=== PATIENT | female | born 1990 | race Caucasian/White ===

== ENCOUNTER 2020-02-25 17:52 | Emergency (ER) | payer OTHER ==
[~2020-02-25] VITALS: Ht 157 cm; Wt 80.4 kg
--- NOTE | 2020-02-25 18:08 | ED Dyspnea ---
General Stated Complaint: BILAT LEG SWELLING/R LEG PAIN/SOB Source of Information: Patient Exam Limitations: No Limitations History of Present Illness Date Seen by Provider: Feb 25, 2020 Time Seen by Provider: 18:06 Initial Comments To ER with bilateral leg swelling for 3 weeks. The right leg has been painful for about 2 weeks. She has been short of breath for about 2 weeks. She just moved here from [facility]. She had a Covid swab done at the onset of this and it was negative. Dyspnea is with exertion. No cough no fevers and the diarrhea has resolved. He has no personal history of anxiety and depression. Takes no medications. Timing/Duration: Increasing Severity: Moderate Associated Symptoms: Pain (Right leg) Allergies and Home Medications Allergies Coded Allergies: No Allergy Information Available (Unverified , 02/25/20) Home Medications Hydrochlorothiazide 12.5 Mg Tablet, 12.5 MG PO DAILY Prescribed by: HAROLDO WYNNE on 02/25/201921 Patient Home Medication List Home Medication List Reviewed: Yes Review of Systems Review of Systems Constitutional: see HPI EENTM: see HPI Respiratory: see HPI, dyspnea on exertion, short of breath Cardiovascular: no symptoms reported Genitourinary: no symptoms reported Musculoskeletal: no symptoms reported Skin: no symptoms reported Psychiatric/Neurological: No Symptoms Reported Endocrine: No Symptoms Reported Past Zbecroh-Glokwu-Goxpwo Hx Patient Social History Recent Foreign Travel: No Contact w/Someone Who Travel: No Physical Exam Vital Signs Vital Signs - First Documented 02/25/20 17:59 Temp 37.1 Pulse 80 Resp 18 B/P (MAP) 141/84 (103) Pulse Ox 98 O2 Delivery Room Air Capillary Refill : Height, Weight, BMI Height: '" Weight: lbs. oz. kg; BMI Method: General Appearance: No Apparent Distress, WD/WN, Other (does appear short of breath but lungs are clear with oxygen saturation 96-99 all all. She is afebrile.) Respiratory: Normal Breath Sounds, No Accessory Muscle Use, No Respiratory Distress Cardiovascular: Regular Rate, Rhythm, Normal Peripheral Pulses Gastrointestinal: Normal Bowel Sounds, Non Tender, Soft Extremity: Normal Capillary Refill, Normal Inspection, Pedal Edema (2+BLE) Neurologic/Psychiatric: Alert, Oriented x3 Skin: Normal Color, Warm/Dry Progress/Results/Core Measures Results/Orders Lab Results Laboratory Tests Test 02/25/20 18:02 02/25/20 18:14 Range/Units White Blood Count 12.6 H 4.3-11.0 10^3/uL Red Blood Count 4.21 L 4.35-5.85 10^6/uL Hemoglobin 12.3 11.5-16.0 G/DL Hematocrit 37 35-52 % Mean Corpuscular Volume 88 80-99 FL Mean Corpuscular Hemoglobin 29 25-34 PG Mean Corpuscular Hemoglobin Concent 33 32-36 G/DL Red Cell Distribution Width 13.0 10.0-14.5 % Platelet Count 250 130-400 10^3/uL Mean Platelet Volume 10.8 H 7.4-10.4 FL Neutrophils (%) (Auto) 66 42-75 % Lymphocytes (%) (Auto) 23 12-44 % Monocytes (%) (Auto) 10 0-12 % Eosinophils (%) (Auto) 1 0-10 % Basophils (%) (Auto) 0 0-10 % Neutrophils # (Auto) 8.2 H 1.8-7.8 X 10^3 Lymphocytes # (Auto) 2.9 1.0-4.0 X 10^3 Monocytes # (Auto) 1.2 H 0.0-1.0 X 10^3 Eosinophils # (Auto) 0.2 0.0-0.3 10^3/uL Basophils # (Auto) 0.0 0.0-0.1 10^3/uL D-Dimer 0.80 H 0.00-0.49 UG/ML Sodium Level 141 135-145 MMOL/L Potassium Level 3.8 3.6-5.0 MMOL/L Chloride Level 107 98-107 MMOL/L Carbon Dioxide Level 23 21-32 MMOL/L Anion Gap 11 5-14 MMOL/L Blood Urea Nitrogen 11 7-18 MG/DL Creatinine 0.70 0.60-1.30 MG/DL Estimat Glomerular Filtration Rate > 60 BUN/Creatinine Ratio 16 Glucose Level 86 70-105 MG/DL Calcium Level 9.0 8.5-10.1 MG/DL Corrected Calcium 8.9 8.5-10.1 MG/DL Total Bilirubin 0.1 0.1-1.0 MG/DL Aspartate Amino Transf (AST/SGOT) 25 5-34 U/L Alanine Aminotransferase (ALT/SGPT) 34 0-55 U/L Alkaline Phosphatase 70 40-136 U/L C-Reactive Protein High Sensitivity 0.37 0.00-0.50 MG/DL B-Type Natriuretic Peptide 17.9 <100.0 PG/ML Total Protein 7.4 6.4-8.2 GM/DL Albumin 4.1 3.2-4.5 GM/DL Thyroid Stimulating Hormone (TSH) 1.11 0.35-4.94 UIU/ML Free Thyroxine 0.74 0.70-1.48 NG/DL Serum Test, Qualitative NEGATIVE NEGATIVE Urine Color YELLOW Urine Clarity CLEAR Urine pH 7.0 5-9 Urine Specific [place] 1.015 L 1.016-1.022 Urine Protein NEGATIVE NEGATIVE Urine Glucose (UA) NEGATIVE NEGATIVE Urine Ketones NEGATIVE NEGATIVE Urine Nitrite NEGATIVE NEGATIVE Urine Bilirubin NEGATIVE NEGATIVE Urine Urobilinogen 0.2 < = 1.0 MG/DL Urine Leukocyte Esterase NEGATIVE NEGATIVE Urine RBC (Auto) NEGATIVE NEGATIVE Urine RBC NONE /HPF Urine WBC NONE /HPF Urine Crystals PRESENT H /LPF Urine Amorphous Sediment MOD BECKY PHOSPHATE H /LPF Urine Bacteria TRACE /HPF Urine Casts NONE /LPF Urine Mucus NEGATIVE /LPF Urine Culture Indicated NO My Orders Orders - HAROLDO WYNNE [employer]SEMBL[employer] Hcg,Qualitative Serum (02/25/20 18:05) Cbc With Automated Diff (02/25/20 18:05) Comprehensive Metabolic Panel (02/25/20 18:05) Hs C Reactive Protein (02/25/20 18:05) Ua Culture If Indicated (02/25/20 18:05) Ed Iv/Invasive Line Start (02/25/20 18:05) Fibrin Degradation Products (02/25/20 18:05) Chest Pa/Lat (2 View) (02/25/20 18:05) Thyroid Stimulating Hormone (02/25/20 18:05) Free T4 (Free Thyroxine) (02/25/20 18:05) BNP (02/25/20 18:05) Ct Angio Chest W (02/25/20 19:01) Iohexol Injection (Omnipaque 350 Mg/Ml 1 (02/25/20 19:15) Received Contrast (Hold Metformin- Contr (02/25/20 19:15) Ns (Ivpb) (Sodium Chloride 0.9% Ivpb Bag (02/25/20 19:15) Furosemide Injection (Lasix Injection) (02/25/20 20:00) Medications Given in ED Current Medications Medications Dose Ordered Sig/Michelle Route Start Time Stop Time Status Last Admin Dose Admin Iohexol 75 ml ONCE ONCE IV 02/25/20 19:15 02/25/20 19:16 DC 02/25/20 19:29 75 ML Sodium Chloride 100 ml ONCE ONCE IV 02/25/20 19:15 02/25/20 19:16 DC 02/25/20 19:29 100 ML Vital Signs/I&O 02/25/20 17:59 Temp 37.1 Pulse 80 Resp 18 B/P (MAP) 141/84 (103) Pulse Ox 98 O2 Delivery Room Air Departure Communication (Admissions) Family Conversation [id number] is a little high but just minimal. I'll write an order for an outpatient right lower extremity venous Doppler. I'll put her on hydrochlorothiazide given the pedal edema and slight hypertension. I'll have her follow-up with [facility] calling tomorrow to make an appointment to be seen. NAME: BIRAN GUILLERMO [facility] REC#: [id number] PT STATUS: REG ER : 1990 PHYSICIAN: HAROLDO WYNNE APRN ADMIT DATE: 02/25/20/ER Draft Date of Exam:02/25/20 CT ANGIO CHEST W PROCEDURE: CT angiography of the chest with contrast. TECHNIQUE: Multiple contiguous axial images were obtained through the chest after uneventful bolus administration of intravenous contrast. 3D reconstructed CTA MIP acquisitions were also performed. Auto Exposure Controls were utilized during the CT exam to meet ALARA standards for radiation dose reduction. INDICATION: Chest pain, dyspnea and chest tightness. There is good opacification of the pulmonary arteries without intraluminal filling defect identified. Thoracic aorta is also unremarkable. Lungs are clear. There is no significant pleural or pericardial fluid. There is no evidence of pathologic adenopathy in the chest. Below the diaphragm, no abnormality is appreciated. IMPRESSION: No CTA evidence of pulmonary embolism or other acute abnormality within the thorax. Dictated on workstation # [id number] Dict: 02/25/201929 Trans: 02/25/201934 [facility] [id number] Interpreted by: MARY ANN FAIRBANKS MD Electronically signed by: Impression Primary Impression: Dyspnea Additional Impression: Pedal edema Disposition: HOME, SELF-CARE Condition: Stable Departure-Patient Inst. Decision time for Depature: 19:19 Referrals: KRISTOPHER CASTILLO MD NO,LOCAL PHYSICIAN (PCP) Primary Care Physician Patient Instructions: Shortness of Breath (Dyspnea), Swelling Add. Discharge Instructions: 1. Call Dr. Castillo at [facility] tomorrow and request an appointment with either her or one of her colleagues, whoever can see the soonest. Return to ER for any concerns. Scripts Hydrochlorothiazide (Hydrochlorothiazide) 12.5 Mg Tablet 12.5 MG PO DAILY, #14 TAB Prov: HAROLDO WYNNE APRN 02/25/20 Copy Copies To 1: EVIE BROWN DO; KRISTOPHER CASTILLO MD, PETER J APRN Feb 25, 2020 18:08
[2020-02-25 18:12] LABS: BASOPHILS % (AUTO) 0 % (0-10); EOSINOPHILS # (AUTO) 0.2 10^3/uL (0.0-0.3); EOSINOPHILS % (AUTO) 1 % (0-10); HEMATOCRIT 37 % (35-52); HEMOGLOBIN 12.3 G/DL (11.5-16.0); LYMPHOCYTES # (AUTO) 2.9 X 10^3 (1.0-4.0); LYMPHOCYTES % (AUTO) 23 % (12-44); MEAN CORPUSCULAR HEMOGLOBIN 29 PG (25-34); MEAN CORPUSCULAR HGB CONC 33 G/DL (32-36); MEAN CORPUSCULAR VOLUME 88 FL (80-99); MEAN PLATELET VOLUME 10.8 FL (7.4-10.4); MONOCYTES # (AUTO) 1.2 X 10^3 (0.0-1.0); MONOCYTES % (AUTO) 10 % (0-12); NEUTROPHILS # (AUTO) 8.2 X 10^3 (1.8-7.8); NEUTROPHILS % (AUTO) 66 % (42-75); PLATELET COUNT 250 10^3/uL (130-400); WHITE BLOOD COUNT 12.6 10^3/uL (4.3-11.0)
[2020-02-25 18:25] LABS: ALBUMIN 4.1 GM/DL (3.2-4.5); CHLORIDE 107 MMOL/L (98-107); POTASSIUM 3.8 MMOL/L (3.6-5.0); SODIUM 141 MMOL/L (135-145)
[2020-02-25 18:28] LABS: GLUCOSE 86 MG/DL (70-105); TOTAL PROTEIN 7.4 GM/DL (6.4-8.2)
[2020-02-25 18:29] LABS: BILIRUBIN,TOTAL 0.1 MG/DL (0.1-1.0); CARBON DIOXIDE 23 MMOL/L (21-32)
[2020-02-25 18:31] LABS: ALKALINE PHOSPHATASE 70 U/L (40-136); GFR ESTIMATED > 60
[2020-02-25 18:32] LABS: BUN/CREATININE RATIO 16
[2020-02-25 18:33] LABS: BILIRUBIN,URINE NEGATIVE (NEGATIVE); CLARITY,URINE CLEAR; COLOR,URINE YELLOW; GLUCOSE, URINE (UA) NEGATIVE (NEGATIVE); KETONES,URINE NEGATIVE (NEGATIVE); LEUKOCYTE ESTERASE ,URINE NEGATIVE (NEGATIVE); NITRITE,URINE NEGATIVE (NEGATIVE); PROTEIN,URINE NEGATIVE (NEGATIVE)
[2020-02-25 18:34] LABS: ALANINE AMINOTRANSFERASE 34 U/L (0-55)
[2020-02-25 18:54] LABS: BACTERIA,URINE TRACE /HPF
[2020-02-25 18:55] LABS: AMORPHOUS SEDIMENT,UR MOD AMOR PHOSPHATE /LPF
[2020-02-25 18:55] LABS: FREE T4 (FREE THYROXINE) 0.74 NG/DL (0.70-1.48)
--- NOTE | 2020-02-25 19:09 | Diagnostic Imaging Report ---
INDICATION: 29-year-old female with bilateral lower extremity swelling for 3 weeks, intermittent shortness of breath. COMPARISONS: None FINDINGS: Single view of the chest shows the cardiac contour to be within normal limits. There is some prominence of the central vascularity. Overlying breast shadows are seen. No significant consolidations present. There is no effusion or pneumothorax. Soft tissues and bony thorax are normal. IMPRESSION: There is suggestion of some prominence of central pulmonary vascularity suggesting element of mild failure. No significant consolidations are seen. There is no effusion or pneumothorax. Dictated by: Dictated on workstation # [id number]
[2020-02-25] MEDS ORDERED: HOLD METFORMIN - RECEIVED CONTRAST 20 ML VIAL IV SCH (19:15)
[2020-02-25] MEDS ORDERED: IOHEXOL 350 MG/ML 100 ML (OMNIPAQUE 350) VIAL IV ONE (19:15)
[2020-02-25] MEDS ORDERED: NS 100 ML (IVPB) BAG IV ONE (19:15)
[2020-02-25] MEDS ORDERED: HYDR12.56 PO (19:22)
--- NOTE | 2020-02-25 19:37 | Diagnostic Imaging Report ---
PROCEDURE: CT angiography of the chest with contrast. TECHNIQUE: Multiple contiguous axial images were obtained through the chest after uneventful bolus administration of intravenous contrast. 3D reconstructed CTA MIP acquisitions were also performed. Auto Exposure Controls were utilized during the CT exam to meet ALARA standards for radiation dose reduction. INDICATION: Chest pain, dyspnea and chest tightness. There is good opacification of the pulmonary arteries without intraluminal filling defect identified. Thoracic aorta is also unremarkable. Lungs are clear. There is no significant pleural or pericardial fluid. There is no evidence of pathologic adenopathy in the chest. Below the diaphragm, no abnormality is appreciated. IMPRESSION: No CTA evidence of pulmonary embolism or other acute abnormality within the thorax. Dictated by: Dictated on workstation # [id number]
[2020-02-25] MEDS ORDERED: FUROSEMIDE 40 MG/4 ML INJ (LASIX) IVP ONE (20:00)
[2020-02-25 20:01] VITALS: BP 129/83
--- OUTSIDE RECORDS SUMMARY | 2020-02-25 20:40 | XMS REPORT | Continuity of Care Document ---
[facility] Address [address] [place] [address] Care Team Providers Care Ios Programmer Name Role Phone Renetta De León Attphys Referring Physician, None Refphys Unavailable Primary Care Prov, None PCP Unavailable Allergies, Adverse Reactions, Alerts No known allergies. Medications Active Medications Medication Dose Units Route Sig Start Date Status Bupropion Hcl 75 MG PO daily May 04, 2018 Active Problem List No problem information available. Procedures Procedure Date Status US Breast Limited-RT May 04, 2018 completed US Breast Limited-LT May 04, 2018 completed Relevant Diagnostic Tests and/or Laboratory Data No known relevant diagnostic tests, laboratory data, and/or discharge summary. Chief Complaint and Reason for Visit Encounter Admit Date Chief Complaint Reason for Visit Departed Clinical May 04, 2018 1:57pm Left breast nodule Hospital Discharge Instructions No known hospital discharge instructions. Hospital Discharge Medications Medication Dose Units Route Sig Qty Days Order Date Status In structions Bupropion Hcl 75 MG PO daily May 04, 2018 A ctive Encounters Encounter Facility Location Admit/Visit Date Discharge/Departure Date Attending Provider Departed Physician/Provider Office Visit [facility] Breast [facility] May 04, 2018 2:26pm May 04, 2018 11:59pm David De León Departed Clinical [facility] Ultrasound Breast Care Luis Antonio May 04, 2018 1:57pm May 04, 2018 1:58pm Renetta De León Registered Inpatient [facility] Apr 2:10pm Smita Castellano Functional Status No known functional status. Immunizations No known immunizations. Payers Payer Name Policy Type Covered Green Party Covered Green Party Id Relationship Sub scriber Subscriber Id [employer] Other [id number] Self / Same As Patient [id number] Self Pay Other Plan of Care No Known Plan of Care Information Social History No known social history. Vital Signs Vital Reading Result Reference Range Collection Date/ Time Height 5 ft 2 in May 04, 2018 2:54pm Weight 140 lb May 04, 2018 2:54pm Temperature 98.5 F 97.6 F-99.6 F May 04, 2018 2:54pm Pulse 64 BPM 60-90 May 04, 2018 2:54pm Respiration 12 RPM 12-24 May 04, 2018 2:54pm Pulse Oximetry n/a Blood Pressure Systolic 122 100-180 May 04, 2018 2:54pm Blood Pressure Diastolic 68 60-90 May 04, 2018 2:54pm Body Mass Index 25.6 May 04, 2018 2:54pm
--- OUTSIDE RECORDS SUMMARY | 2020-02-25 20:41 | XMS REPORT | Continuity of Care Document ---
Author [facility] Address [address] [place] [address] Care Team Providers Care Telephone Operator Name Role Phone Renetta De León Attphys Primary Care Prov, None PCP Unavailable Allergies, Adverse Reactions, Alerts No known allergies. Medications Active Medications Medication Dose Units Route Sig Start Date Status Bupropion Hcl 75 MG PO daily May 04, 2018 Active Problem List No problem information available. Procedures Procedure Date Status US Breast Limited-RT May 04, 2018 completed US Breast Limited-LT May 04, 2018 completed Reason for Referral Referral information is unavailable. Relevant Diagnostic Tests and/or Laboratory Data No known relevant diagnostic tests, laboratory data, and/or discharge summary. Chief Complaint and Reason for Visit Encounter Admit Date Chief Complaint Reason for Visit Departed Physician/Provider Office Visit May 04, 2018 2:2 6pm NEW PATIENT/BREAST PAIN Hospital Discharge Instructions No known hospital discharge instructions. Hospital Discharge Medications Medication Dose Units Route Sig Qty Days Order Date Status In structions Bupropion Hcl 75 MG PO daily May 04, 2018 A ctive Encounters Encounter Facility Location Admit/Visit Date Discharge/Departure Date Attending Provider Departed Physician/Provider Office Visit [facility] May 04, 2018 2:26pm May 04, 2018 11:59pm David De León Registered Clinical [facility] Ultrasound Breast Ca re Luis Antonio May 04, 2018 1:57pm Renetta De León Registered Inpatient [facility] Apr 2:10pm Smita Castellano Functional Status No known functional status. Immunizations No known immunizations. Payers Payer Name Policy Type Covered Republican Covered Republican Id Relationship Sub scriber Subscriber Id [employer] Other [id number] Self / Same As Patient [id number] Self Pay Other Plan of Care No [...]
--- OUTSIDE RECORDS SUMMARY | 2020-02-25 20:41 | XMS REPORT | Continuity of Care Document ---
Author Organization Unknown Address Unknown Phone Unavailable Allergies Active Description Code Type Severity Reaction Onset Reported/Identified Relationship to Patient Clinical Status Yes NO KNOWN ALLERGIES DRUG N/A N/A Yes No Known Drug Allergies [id number] Drug Allergy Unknown N/A 05/04/2018 Yes No Known Allergies No Known Allerg MED N/A No Known Allergies 07/18/2018 Medications Medication Packaging Start Date St op Date Route Dosage Sig Sertraline HCl 50 MG Oral Tablet 07/18/2018 09/17/2018 ORAL 0.500 diazePAM 2 MG Oral Tablet 09/12/2018 10/13/2018 ORAL Problems Date Dx Coded Attending Type Code Diagnosis Diagnosed By 03/29/2018 W [id number] atypical chest pain 04/05/2018 Kayode José [id number] pain of breast 04/17/2018 FLORIAN HATHAWAY S M436 Torticollis 04/17/2018 FLORIAN HATHAWAY P R079 Chest pain, unspecified 05/04/2018 Genet, Renetta R F N64.9 Disorder of breast, unspecified 05/04/2018 Genet, Renetta R F R92.8 Other abnormal and inconclusive findings on diagnostic imaging of breast 05/04/2018 Genet, Renetta R Other N64 .9 N64.9 - Disorder of breast, unspecified 05/04/2018 Genet, Renetta R Other R92 .8 R92.8 - Other abnormal and inconclusive findings on diagnostic imaging of breast 06/06/2018 F F33.1 Ananya r depressive disorder, recurrent, moderate Birkey, Dixon 06/06/2018 F F43.9 Reac tion to severe stress, unspecified Birkey, Dixon 08/07/2018 F F43.9 Reac tion to severe stress, unspecified Birkey, Dixon 09/19/2018 Ирина Braun V1 N63.0 Unspecified lump in unspecified breast 09/19/2018 Ирина Braun V1 N64.4 Mastodynia 09/19/2018 Ирина Braun V1 N63.0 Unspecified lump in unspecified breast 09/19/2018 Ирина Braun V1 N64.4 Mastodynia 09/19/2018 Ирина Braun V1 N63.0 Unspecified lump in unspecified breast 09/19/2018 Ирина Braun V1 N64.4 Mastodynia Procedures Code Description [place] [id number] 05/04/2018 Results Test Result Range CBC WO diff BldCo - 04/17/18 15:18 HEMATOCRIT 36.2 % 34.1 - 44.9 HEMOGLOBIN 12.2 G/DL 11.2 - 15.7 RBC COUNT 4.16 10^6/UL 3.93 - 5.20 WBC COUNT 10.6 10^3/UL 3.9 - 10.0 CBC + LAB MCV 87.0 FL 79.4 - 94.8 MCH 29.3 PG 25.6 - 32.2 MCHC 33.7 G/DL 32.2 - 35.5 RDW 11.9 % 11.5 - 14.5 PLT 233 10^3/UL 150 - 450 MPV 11.2 FL 9.2 - 11.6 LY 29.2 % 19.3 - 51.7 MO 9.2 % 4.7 - 12.5 GR 60.2 % 34.1 - 71.1 EO 0.8 % 0.7 - 5.8 BA 0.4 % 0.1 - 3.0 LY# 3.1 10^3/UL 1.2 - 3.7 MO# 1.0 10^3/UL 0.2 - 0.9 GR# 6.4 10^3/UL 1.6 - 6.1 EO# 0.1 10^3/UL BA# <0.03 10^3/UL MANUAL DIFF. NOT INDICATED MORPHOLOGY SCAN NOT INDICATED IMGR 0.20 % 0.00 - 6.00 IMGR# <0.03 10^3/UL Deprecated D Dimer [facility] - 04/17/18 1 5:18 D-DIMER QUANT. 0.29 MG/L 0.19 - 0.50 PT Pnl PPP - 04/17/18 15:18 PROTIME 11.2 SECONDS 9.7 - 11.6 INR 1.05 0.80 - 1.20 aPTT Time PPP - 04/17/18 15:18 aPTT 32.2 SECONDS 25.0 - 39.0 Comp Metab 2000 Pnl SerPl - 04/17/18 15: 18 ALANINE AMINOTRANSFERASE 15 IU/L 0 - 3 5 ALBUMIN BLOOD 4.7 G/DL 3.5 - 5.0 AST 23 IU/L 14 - 36 CHLORIDE 105 MMOL/L 98 - 107 CO2 TOTAL 24 MMOL/L 22 - 30 CREATININE 0.6 MG/DL 0.5 - 1.0 DA GLUCOSE 99 MG/DL 73 - 113 POTASSIUM 3.5 MMOL/L 3.5 - 5.1 SODIUM 139 MMOL/L 137 - 145 COMPREHENSIVE METABOLIC PANEL LAB UREA NITROGEN 11 MG/DL 7 - 17 ANION GAP 14 6 - 16 OSMO, CALC. 287 MOS/KG 283 - 300 TOTAL PROTEIN 8.3 G/DL 6.0 - 8.3 GLOBULIN 3.6 G/DL 1.9 - 3.5 A/G RATIO 1.31 1.10 - 3.00 ALK PHOS 66 IU/L 38 - 126 CALCIUM 9.5 MG/DL 8.4 - 10.2 B/C RATIO 18 10 - 20 AGE 27 YRS eGFR 118 mL/min 60 - 140 TOTAL BILI R 0.3 MG/DL 0.2 - 1.3 Cardiac biomarkers - 04/17/18 15:18 CK 42 IU/L 30 - 135 TROPONIN I <0.01 NG/ML 0.00 - 0.04 Magnesium SerPl-mCnc - 04/17/18 15:18 MAGNESIUM 1.4 MEQ/L 1.4 - 2.0 status Imp Reported - 04/17/18 15:18 HCG, QUAL. NEGATIVE Urinalysis Pnl Ur Auto - 04/17/18 16:30 DA GLUCOSE Negative Normal: Negative Color No Color Normal: Straw-Suzie Clarity Clear Normal: Clear Bilirubin Negative Normal: Negative Ketones Negative Normal: Negative Sp [place] <=1.005 Normal: 1.005-1.02 5 Blood Negative Normal: Negative pH 7.0 Normal: 5.0 - 8.0 Protein Negative Normal: Negative Urobilinogen Normal Normal: 0.2 - 1. 0 Nitrite Negative Normal: Negative Leukocytes Negative Normal: Negative Microscopic Not Indicated URINALYSIS W/RFLX TO CULTURE + LAB Quantitative HCG - 04/19/18 10:09 Quantitative HCG <1.20 mIU/mL <=5.00 ESTRADIOL - 04/19/18 10:09 ESTRADIOL Sent to reference lab report to follow NRG FSH - 04/19/18 10:09 FSH Sent to reference lab report to follow NRG LH - 04/19/18 10:09 LH Sent to reference lab report to follow NRG PROLACTIN - 04/19/18 10:09 PROLACTIN Sent to reference lab report to follow NRG Free T3 - 04/19/18 10:09 Free T3 2.33 pg/ml 1.71-3.71 TSH - 04/19/18 10:09 TSH 1.22 mIU/mL 0.35-4.94 Free T4 - 04/19/18 10:09 Free T4 0.95 ng/dL 0.70-1.48 CPK - 04/19/18 10:32 CPK 33 U/L 29-168 CKMB - 04/19/18 10:32 CKMB 0.3 ng/mL 0.0-10.4 MYOGLOBIN - 04/19/18 10:32 Myoglobin 25.7 ng/ml 0.0-106.0 TROPONIN I - 04/19/18 10:32 TROPONIN -I 0.00 ng/mL 0.00-0.03 CHICO SCREEN - 04/26/18 11:10 CHICO SCREEN Sent to reference lab report to follow NRG RHEUMATOID FACTOR - 04/26/18 11:10 RHEUMATOID FACTOR Sent to reference lab report to follow NRG Sed Rate (ESR) - 04/26/18 11:10 Sed Rate (ESR) 20 mm/hr 0-20 C-Reactive Protein (CRP) - 04/26/18 11:1 0 C REACTIVE PROTEIN 0.2 mg/dl 0.0-0.5 Uric Acid - 04/26/18 11:10 Uric Acid 3.0 mg/dL 2.6-6.0 Complete blood count (CBC) with automate d white blood cell (WBC) differential - 02/25/20 18:02 Blood leukocytes automated count (number/volume) 12.6 10*3/uL 4.3-11.0 Blood erythrocytes automated count (number/volume) 4.21 10*6/uL 4.35-5.85 Venous blood hemoglobin measurement (mass/volume) 12.3 g/dL 11.5-16.0 Blood hematocrit (volume fraction) 37 % 35-52 Automated erythrocyte mean corpuscular volume 88 [ foz_us] 80-99 Automated erythrocyte mean corpuscular h emoglobin (mass per erythrocyte) 29 pg 25-34 Automated erythrocyte mean corpuscular h emoglobin concentration measurement (mass/volume) 33 g/dL 32-36 Automated erythrocyte distribution width ratio 13. 0 % 10.0- 14.5 Automated blood platelet count (count/volume) 250 10*3/uL 130-400 Automated blood platelet mean volume measurement 10.8 [foz_us] 7.4-10.4 Automated blood neutrophils/100 leukocytes 66 % 42-75 Automated blood lymphocytes/100 leukocytes 23 % 12-44 Blood monocytes/100 leukocytes 10 % 0-12 Automated blood eosinophils/100 leukocytes 1 % 0-10 Automated blood basophils/100 leukocytes 0 % 0-10 Blood neutrophils automated count (number/volume) 8.2 10*3 1.8-7.8 Blood lymphocytes automated count (number/volume) 2.9 10*3 1.0-4.0 Blood monocytes automated count (number/volume) 1. 2 10*3 0.0-1.0 Automated eosinophil count 0.2 10*3/uL 0 .0-0.3 Automated blood basophil count (count/volume) 0.0 10*3/uL 0.0-0.1 Encounters ACCT No. Visit Date/Time Discharge Status Pt. Type Provider Facility Loc./Unit Complaint [id number] 06/06/2018 11:29:00 06/06/2018 23:5 9:59 [facility] Outpatient [id number] 04/17/2018 15:15:00 04/17/2018 23:59: 59 [facility] Emergency IAFLORIAN SARMIENTO [facility] 014 [id number] 04/17/2018 15:15:00 Document Registration [id number] 09/19/2018 14:13:06 09/19/2018 23: 59:00 DIS Outpatient Ирина Braun [facility] [id number] 02/25/2020 17:54:[address] Emergency HAROLDO WYNNE APRN [facility] ER BILAT LEG SWELLING/R LEG MARCELLA N/SOB [id number] 05/04/2018 14:26:00 018 23:59:00 DIS Outpatient Renetta De León [facility] HMG.BREAST NEW PATIENT/BREAST PAIN [id number] 05/04/2018 13:57:00 13:58:00 DIS Outpatient GenetRenetta [facility] IMG.US.BCC Left breast nodule [id number] 04/19/2018 14:10:00 018 23:59:59 CLS Outpatient Arnav ROQUE [facility] ARNOLDO Chest pain [id number] 09/04/2018 07:31:00 23:59:00 [facility] 14 [id number] 04/26/2018 10:48:00 018 23:59:00 [facility] [id number] 04/25/2018 09:23:00 018 23:59:00 DIS Outpatient [facility] 14 [id number] 04/25/2018 17:48:00 018 18:52:00 DIS Emergency [facility] 4 [id number] 04/21/2018 11:33:00 018 23:59:00 DIS Outpatient [facility] 14 [id number] 04/19/2018 09:43:00 018 23:59:00 DIS Outpatient [facility] 14 [id number] 04/05/2018 08:51:00 018 09:30:00 DIS Outpatient [facility] 52 [id number] 03/29/2018 10:31:00 018 15:55:00 DIS Outpatient [facility] 51 [id number] 03/29/2018 07:32:00 018 15:55:00 DIS Emergency [facility] 4 [id number] 04/26/2018 12:19:00 Document Registration [id number] 04/19/2018 11:46:00 Document Registration [id number] 04/17/2018 21:40:00 Document Registration
== END 2020-02-25 20:01 | disposition home or self-care (01) ==
LOC: ER 17:54
DX: R06.09 Other forms of dyspnea (principal); R60.9 Edema, unspecified; Z20.828 Contact with and (suspected) exposure to other viral communicable diseases
CPT/HCPCS: 36415; 71046; 71275; 80053; 81000; 83880; 84439; 84443; 84703; 85025; 85379; 86141

== ENCOUNTER → 2020-02-26 | Outpatient (CLI) | payer OTHER ==
[~2020-02-26] MED LIST: HYDR12.56 PO
--- NOTE | 2020-02-26 14:08 | Diagnostic Imaging Report ---
PROCEDURE: US right lower extremity venous. TECHNIQUE: Multiple real-time grayscale images were obtained over the right lower extremity in various projections. Additional spectral analysis and color Doppler duplex images were also obtained. INDICATION: Leg pain There are no prior studies for comparison. There is generally good blood flow and compressibility in the common femoral, superficial femoral, popliteal and posterior tibial veins. However the peroneal vein does appear to be thrombosed. IMPRESSION: 1. There is thrombosis of the peroneal vein. The remainder of the deep venous system is unremarkable for a deep venous thrombosis. 2. These results were called to Dr. Gates by our sonologist. Dictated by: Dictated on workstation # [id number]
== END ==
LOC: RAD 12:57
PROVIDERS: ATTEND Nurse Practitioner Family
DX: I82.451 Acute embolism and thrombosis of right peroneal vein (principal)

== ENCOUNTER 2020-04-10 19:40 | Emergency (ER) | payer OTHER ==
[~2020-04-10] VITALS: Ht 160 cm; Wt 80.2 kg
[2020-04-10] MEDS ORDERED: LORazepam INJ 2 MG/ML (ATIVAN) VIAL ONE (19:49)
[2020-04-10] MEDS ORDERED: KETOROLAC 30 MG/ML VIAL ONE (19:58)
[2020-04-10] MEDS ORDERED: LORazepam INJ 2 MG/ML (ATIVAN) VIAL IVP ONE (20:00)
[2020-04-10] MEDS ORDERED: KETOROLAC 15 MG/ML VIAL IVP ONE (20:15)
--- NOTE | 2020-04-10 20:15 | ED Respiratory ---
General Chief Complaint: Respiratory Problems Stated Complaint: SOA/LIGHT HEADEDNESS/NECK PAIN/COUGH Source: patient Exam Limitations: no limitations History of Present Illness Date Seen by Provider: Apr 10, 2020 Time Seen by Provider: 20:10 Initial Comments To ER with c/o headache, shortness of breath. No fevers. Also has neck tend erness and chest soreness. No fevers. Complains of a lot of anxiety, she is out of her Xanax 1 month. She was just started on Abilify yesterday by [facility]. She states she is very anxious because she just found out about an eating disorder. She assures me she doesn't have coronavirus because she hasn't left the house though she did just go to [place] to visit family and her children go to public schools. She has a history of DVT and is concerned that she has a pulmonary embolism. She is on Eliquis 5 mg twice a day but has missed a few doses here and there. Timing/Duration: constant Severity: moderate Associated Symptoms: cough, shortness of breath Allergies and Home Medications Allergies Coded Allergies: No Known Drug Allergies (Unverified , 04/10/20) Home Medications Hydrochlorothiazide 12.5 Mg Tablet, 12.5 MG PO DAILY Prescribed by: HAROLDO WYNNE on 02/25/201921 Patient Home Medication List Home Medication List Reviewed: Yes Review of Systems Review of Systems Constitutional: see HPI EENTM: see HPI Respiratory: see HPI, dyspnea on exertion, short of breath Cardiovascular: no symptoms reported Genitourinary: no symptoms reported Musculoskeletal: no symptoms reported Skin: no symptoms reported Psychiatric/Neurological: No Symptoms Reported Hematologic/Lymphatic: No Symptoms Reported Immunological/Allergic: no symptoms reported Past Rhupcze-Cxepyc-Ctnnqk Hx Patient Social History 2nd Hand Smoke Exposure: No Recent Foreign Travel: No Contact w/Someone Who Travel: No Recent Hopitalizations: No Immunizations Up To Date PED Vaccines UTD: Yes Seasonal Allergies Seasonal Allergies: No Past Medical History Surgeries: Yes Section Respiratory: No Cardiac: No 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 oz. kg; 32.00 BMI Method: General Appearance: WD/WN, no apparent distress, other (extremely anxious hyperventilating sobbing. As she coughs into my face and hyperventilating she denies a cough, still asserting that coronavirus is outside the realm of possibilities. She apologizes for her behavior stating "I get hostile when I get anxious") HEENT: PERRL/EOMI, normal ENT inspection Neck: non-tender, full range of motion Respiratory: normal breath sounds, no respiratory distress, no accessory muscle use Cardiovascular: regular rate, rhythm, no murmur, other (heart rate 105 reduced down to 85 when calm. Oxygen saturation 99% on room air.) Neurologic/Psychiatric: alert, normal mood/affect, oriented x 3 Skin: normal color, warm/dry Progress/Results/Core Measures Suspected Sepsis SIRS Temperature: Pulse: Respiratory Rate: Laboratory Tests 04/10/20 20:00: White Blood Count 14.9H Blood Pressure / Mean: Laboratory Tests 04/10/20 20:00: Creatinine 0.76, Platelet Count 312, Total Bilirubin 0.3 Results/Orders Lab Results Laboratory Tests Test 04/10/20 20:00 04/10/20 20:30 Range/Units White Blood Count 14.9 H 4.3-11.0 10^3/uL Red Blood Count 4.41 4.35-5.85 10^6/uL Hemoglobin 13.0 11.5-16.0 G/DL Hematocrit 39 35-52 % Mean Corpuscular Volume 87 80-99 FL Mean Corpuscular Hemoglobin 30 25-34 PG Mean Corpuscular Hemoglobin Concent 34 32-36 G/DL Red Cell Distribution Width 12.4 10.0-14.5 % Platelet Count 312 130-400 10^3/uL Mean Platelet Volume 11.0 H 7.4-10.4 FL Neutrophils (%) (Auto) 57 42-75 % Lymphocytes (%) (Auto) 32 12-44 % Monocytes (%) (Auto) 10 0-12 % Eosinophils (%) (Auto) 1 0-10 % Basophils (%) (Auto) 0 0-10 % Neutrophils # (Auto) 8.5 H 1.8-7.8 X 10^3 Lymphocytes # (Auto) 4.8 H 1.0-4.0 X 10^3 Monocytes # (Auto) 1.5 H 0.0-1.0 X 10^3 Eosinophils # (Auto) 0.1 0.0-0.3 10^3/uL Basophils # (Auto) 0.0 0.0-0.1 10^3/uL Neutrophils % (Manual) 64 % Lymphocytes % (Manual) 30 % Monocytes % (Manual) 6 % Eosinophils % (Manual) 0 % Basophils % (Manual) 0 % Band Neutrophils 0 % Toxic Granulation 1+ D-Dimer 0.34 0.00-0.49 UG/ML Sodium Level 139 135-145 MMOL/L Potassium Level 3.9 3.6-5.0 MMOL/L Chloride Level 104 98-107 MMOL/L Carbon Dioxide Level 22 21-32 MMOL/L Anion Gap 13 5-14 MMOL/L Blood Urea Nitrogen 10 7-18 MG/DL Creatinine 0.76 0.60-1.30 MG/DL Estimat Glomerular Filtration Rate > 60 BUN/Creatinine Ratio 13 Glucose Level 96 70-105 MG/DL Calcium Level 9.4 8.5-10.1 MG/DL Corrected Calcium 9.0 8.5-10.1 MG/DL Total Bilirubin 0.3 0.1-1.0 MG/DL Aspartate Amino Transf (AST/SGOT) 34 5-34 U/L Alanine Aminotransferase (ALT/SGPT) 39 0-55 U/L Alkaline Phosphatase 68 40-136 U/L Troponin I < 0.028 <0.028 NG/ML C-Reactive Protein High Sensitivity 0.41 0.00-0.50 MG/DL Total Protein 8.2 6.4-8.2 GM/DL Albumin 4.5 3.2-4.5 GM/DL Serum Test, Qualitative NEGATIVE NEGATIVE My Orders Orders - HAROLDO WYNNE APRN Lorazepam Injection (Ativan Injection) (04/10/20 19:49) Lorazepam Injection (Ativan Injection) (04/10/20 20:00) Ketorolac Injection (Toradol Injection) (04/10/20 19:58) Ketorolac Injection (Toradol Injection) (04/10/20 20:15) Cbc With Automated Diff (04/10/20 20:15) Hcg,Qualitative Serum (04/10/20 20:15) Comprehensive Metabolic Panel (04/10/20 20:15) Fibrin Degradation Products (04/10/20 20:15) Chest 1 View, Ap/Pa Only (04/10/20 20:15) Ekg Tracing (04/10/20 20:15) Troponin I (04/10/20 20:15) Hs C Reactive Protein (04/10/20 20:15) Manual Differential (04/10/20 20:00) Coronavirus Sars-Cov-2 So 2018 (04/10/20 20:39) Ua Culture If Indicated (04/10/20 20:57) Medications Given in ED Current Medications Medications Dose Ordered Sig/Michelle Route Start Time Stop Time Status Last Admin Dose Admin Ketorolac Tromethamine 30 mg STK-MED ONCE .ROUTE 04/10/20 19:58 04/10/20 20:03 DC 04/10/20 20:08 15 MG Lorazepam 1 mg ONCE ONCE IVP 04/10/20 20:00 04/10/20 20:01 DC 04/10/20 19:58 1 MG Vital Signs/I&O 04/10/20 19:49 Temp 36.0 Pulse 108 Resp 24 B/P (MAP) 129/84 (99) O2 Delivery Room Air Capillary Refill : Departure Impression Primary Impression: Anxiety Additional Impressions: Dyspnea Qualified Codes: R06.00 - Dyspnea, unspecified DVT (deep venous thrombosis) Qualified Codes: I82.409 - Acute embolism and thrombosis of unspecified deep veins of unspecified lower extremity Disposition: 01 HOME, SELF-CARE Condition: Improved Departure-Patient Inst. Decision time for Depature: 21:05 Referrals: NO,LOCAL PHYSICIAN (PCP/Family) Primary Care Physician Patient Instructions: Anxiety, Adult (DC), Cough, Adult (DC) Add. Discharge Instructions: 1. Your coronavirus result will be back within 24-48 hours. If it's positive [facility] will be in contact with you to guide you further. In the meantime it would be a good idea to quarantine away from family and friends as much as possible. Tylenol and ibuprofen for any body aches . Follow-up with your mental health provider to discuss treatment options for your anxiety. All discharge instructions reviewed with patient and/or family. Voiced understanding. Scripts Hydroxyzine HCl (Hydroxyzine HCl) 25 Mg Tablet 25 MG PO Q4H PRN for ANXIETY, #14 TAB Prov: HAROLDO WYNNE APRN 04/10/20 HAROLDO WYNNE APRN Apr 10, 2020 20:15
[2020-04-10 20:32] LABS: BASOPHILS % (AUTO) 0 % (0-10); EOSINOPHILS # (AUTO) 0.1 10^3/uL (0.0-0.3); EOSINOPHILS % (AUTO) 1 % (0-10); HEMATOCRIT 39 % (35-52); LYMPHOCYTES # (AUTO) 4.8 X 10^3 (1.0-4.0); LYMPHOCYTES % (AUTO) 32 % (12-44); MEAN CORPUSCULAR HEMOGLOBIN 30 PG (25-34); MEAN CORPUSCULAR HGB CONC 34 G/DL (32-36); MEAN CORPUSCULAR VOLUME 87 FL (80-99); MONOCYTES # (AUTO) 1.5 X 10^3 (0.0-1.0); MONOCYTES % (AUTO) 10 % (0-12); NEUTROPHILS # (AUTO) 8.5 X 10^3 (1.8-7.8); NEUTROPHILS % (AUTO) 57 % (42-75); PLATELET COUNT 312 10^3/uL (130-400); WHITE BLOOD COUNT 14.9 10^3/uL (4.3-11.0)
[2020-04-10 20:35] LABS: ALBUMIN 4.5 GM/DL (3.2-4.5); CHLORIDE 104 MMOL/L (98-107); POTASSIUM 3.9 MMOL/L (3.6-5.0); SODIUM 139 MMOL/L (135-145)
[2020-04-10 20:36] LABS: CALCIUM 9.4 MG/DL (8.5-10.1)
[2020-04-10 20:38] LABS: GLUCOSE 96 MG/DL (70-105); TOTAL PROTEIN 8.2 GM/DL (6.4-8.2)
[2020-04-10 20:39] LABS: BILIRUBIN,TOTAL 0.3 MG/DL (0.1-1.0); CARBON DIOXIDE 22 MMOL/L (21-32)
[2020-04-10 20:41] LABS: ALKALINE PHOSPHATASE 68 U/L (40-136); CREATININE SERUM 0.76 MG/DL (0.60-1.30); GFR ESTIMATED > 60
[2020-04-10 20:42] LABS: BUN/CREATININE RATIO 13
[2020-04-10 20:44] LABS: ALANINE AMINOTRANSFERASE 39 U/L (0-55)
--- NOTE | 2020-04-10 20:44 | Diagnostic Imaging Report ---
EXAM: Chest 1 view, AP/PA only. INDICATION: Shortness of air. Lightheadedness. Cough. COMPARISON: CTA chest 02/25/2020. FINDINGS: Normal heart size and central pulmonary vascularity. No focal pulmonary opacity, pleural effusion or pneumothorax. No acute osseous finding. IMPRESSION: No acute cardiopulmonary finding. Dictated by: Dictated on workstation # [id number]
[2020-04-10 20:56] LABS: BAND NEUTROPHILS 0 %; BASOPHILS % (MANUAL) 0 %; EOSINOPHILS % (MANUAL) 0 %; LYMPHOCYTES % (MANUAL) 30 %; MONOCYTES % (MANUAL) 6 %; NEUTROPHILS % (MANUAL) 64 %; TOXIC GRANULATION/VACUOLAZATIO 1+
[2020-04-10] MEDS ORDERED: HYDR-700 PO (21:07)
[2020-04-10 21:16] LABS: BILIRUBIN,URINE NEGATIVE (NEGATIVE); CLARITY,URINE CLEAR; COLOR,URINE YELLOW; GLUCOSE, URINE (UA) NEGATIVE (NEGATIVE); KETONES,URINE NEGATIVE (NEGATIVE); LEUKOCYTE ESTERASE ,URINE NEGATIVE (NEGATIVE); NITRITE,URINE NEGATIVE (NEGATIVE); PH,URINE 6.5 (5-9); PROTEIN,URINE NEGATIVE (NEGATIVE)
[2020-04-10 21:23] LABS: BACTERIA,URINE TRACE /HPF; SQUAMOUS EPITHELIAL CELL,UR RARE /HPF
[2020-04-10 21:29] VITALS: BP 120/71
--- NOTE | 2020-04-12 16:04 | NUR ---
Pt called for COVID results.
== END 2020-04-10 21:35 | disposition home or self-care (01) ==
LOC: EDUNIT# 19:40 → ER 19:42
DX: F41.9 Anxiety disorder, unspecified (principal); R06.00 Dyspnea, unspecified; I82.409 Acute embolism and thrombosis of unspecified deep veins of unspecified lower extremity; Z20.828 Contact with and (suspected) exposure to other viral communicable diseases; Z79.01 Long term (current) use of anticoagulants
CPT/HCPCS: 71045; 80053; 81000; 84484; 84703; 85007; 85027; 85379; 86141; 93005; 99284; U0002; 36415; 87635

== ENCOUNTER 2020-05-15 15:56 | Emergency (ER) | payer OTHER ==
[~2020-05-15] VITALS: Ht 157 cm; Wt 79.0 kg
[~2020-05-15 15:56] MED LIST changes: +HYDR-700 PO
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
[2020-05-15] MEDS ORDERED: HYDROcodone/APAP 5 MG/325 MG (LORTAB) TAB PO ONE (17:00)
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
[2020-05-15] MEDS ORDERED: METH-313 PO (17:13)
[2020-05-15] MEDS ORDERED: oxyCODONE/APAP 5/325MG (PERCOCET 5) TABLET PO ONE (17:15)
[2020-05-15 17:22] VITALS: BP 126/89
== END 2020-05-15 17:22 ==
LOC: EDUNIT# 15:56 → ER 15:59
DX: R51.9 Headache, unspecified (principal); R40.2410 Glasgow coma scale score 13-15, unspecified time; F41.9 Anxiety disorder, unspecified; Z20.828 Contact with and (suspected) exposure to other viral communicable diseases
CPT/HCPCS: 70450; 72125

== ENCOUNTER 2020-07-28 11:58 | Emergency (ER) | payer OTHER ==
[~2020-07-28] VITALS: Ht 157 cm; Wt 79.0 kg
[~2020-07-28 11:58] MED LIST changes: +METH-313 PO
--- NOTE | 2020-07-28 14:03 | NUR ---
TO ROOM NO NEW C/O FORM TRIAGE.
[2020-07-28 15:13] LABS: BASOPHILS % (AUTO) 0 % (0-10); EOSINOPHILS # (AUTO) 0.1 10^3/uL (0.0-0.3); EOSINOPHILS % (AUTO) 1 % (0-10); HEMATOCRIT 41 % (35-52); HEMOGLOBIN 13.6 g/dL (11.5-16.0); LYMPHOCYTES # (AUTO) 2.4 10^3/uL (1.0-4.0); LYMPHOCYTES % (AUTO) 26 % (12-44); MEAN CORPUSCULAR HEMOGLOBIN 29 pg (25-34); MEAN CORPUSCULAR HGB CONC 33 g/dL (32-36); MEAN CORPUSCULAR VOLUME 89 fL (80-99); MEAN PLATELET VOLUME 10.1 fL (9.0-12.2); MONOCYTES # (AUTO) 0.8 10^3/uL (0.0-1.0); MONOCYTES % (AUTO) 9 % (0-12); NEUTROPHILS # (AUTO) 5.8 10^3/uL (1.8-7.8); NEUTROPHILS % (AUTO) 63 % (42-75); PLATELET COUNT 303 10^3/uL (130-400); WHITE BLOOD COUNT 9.2 10^3/uL (4.3-11.0)
--- NOTE | 2020-07-28 15:25 | Diagnostic Imaging Report ---
PROCEDURE: US Venous Lower Ext Anibal. TECHNIQUE: Multiple real-time grayscale images were obtained over the lower extremities in various projections, bilaterally. Additional duplex Doppler and color Doppler images were also obtained. INDICATION: Bilateral lower extremity swelling EXAMINATION: Grayscale and color Doppler evaluation of the deep veins of the left lower extremity were performed with waveform analysis. FINDINGS: Continuous venous flow is present. No intraluminal filling defect is identified. There is normal compressibility and response to augmentation. No abnormal perivascular fluid collection is identified. IMPRESSION: No ultrasound evidence of left lower extremity deep venous thrombosis. Dictated by: Dictated on workstation # [id number]
[2020-07-28 15:31] LABS: ALANINE AMINOTRANSFERASE 55 U/L (0-55); ALBUMIN 4.6 GM/DL (3.2-4.5); ALKALINE PHOSPHATASE 74 U/L (40-136); BILIRUBIN,TOTAL 0.3 MG/DL (0.1-1.0); BUN/CREATININE RATIO 12; CALCIUM 9.6 MG/DL (8.5-10.1); CARBON DIOXIDE 32 MMOL/L (21-32); CHLORIDE 105 MMOL/L (98-107); CREATININE SERUM 0.75 MG/DL (0.60-1.30); GFR ESTIMATED > 60; GLUCOSE 90 MG/DL (70-105); POTASSIUM 3.8 MMOL/L (3.6-5.0); SODIUM 141 MMOL/L (135-145); TOTAL PROTEIN 8.7 GM/DL (6.4-8.2)
[2020-07-28 15:32] LABS: ERYTHROCYTE SEDIMENTATION RATE 8 MM/HR (0-20)
--- NOTE | 2020-07-28 17:06 | ED Lower Extremity ---
General Chief Complaint: Lower Extremity Stated Complaint: R CALF PAIN/BILAT LEG SWELLING Nursing Triage Note: Patient reports bilateral swelling in lower extremities. reports calling PCP and being told to come to ER for ultrasound. 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 States her legs started swelling again over the past few days. She does take Eliquis twice daily as directed. Swelling is improved when legs are elevated and worsened when dependent. Denies fevers, chills, cough, shortness of breath, nausea, vomiting, diarrhea, abdominal pain. Allergies and Home Medications Allergies Coded Allergies: No Known Drug Allergies (Unverified , 04/10/20) Home Medications Hydrochlorothiazide 12.5 Mg Tablet, 12.5 MG PO DAILY Prescribed by: HAROLDO WYNNE on 02/25/20 192 Hydroxyzine HCl 25 Mg Tablet, 25 MG PO Q4H PRN for ANXIETY Prescribed by: HAROLDO WYNNE on 04/10/207 Methocarbamol 750 Mg Tablet, 750 MG PO Q4H PRN for PAIN-MODERATE (5-7) Prescribed by: HAROLDO WYNNE on 05/15/20 1713 Patient Home Medication List Home Medication List Reviewed: Yes Review of Systems Constitutional: no symptoms reported EENTM: no symptoms reported Respiratory: no symptoms reported Cardiovascular: edema Gastrointestinal: no symptoms reported Genitourinary: no symptoms reported Musculoskeletal: no symptoms reported Skin: no symptoms reported Psychiatric/Neurological: No Symptoms Reported Past Nmequcb-Ntyogy-Uwfhsi Hx Patient Social History Alcohol Use: Denies Use Recreational Drug Use: No 2nd Hand Smoke Exposure: No Recent Foreign Travel: No Contact w/Someone Who Travel: No Recent Infectious Disease Expo: No Recent Hopitalizations: No Immunizations Up To Date PED Vaccines UTD: Yes Seasonal Allergies Seasonal Allergies: No Past Medical History Surgeries: Yes Section Respiratory: Yes Pulmonary Embolism Cardiac: Yes High Cholesterol Neurological: No PRODUCT DEMONSTRATOR History: IUD Genitourinary: No Gastrointestinal: No Musculoskeletal: No Endocrine: No HEENT: No Cancer: No Psychosocial: Yes Anxiety, Depression Integumentary: No Physical Exam Vital Signs Vital Signs - First Documented 07/28/20 13:50 Temp 37.0 Pulse 100 Resp 18 B/P (MAP) 136/86 (103) Pulse Ox 97 O2 Delivery Room Air Capillary Refill : Less Than 3 Seconds Height, Weight, BMI Height: '" Weight: lbs. oz. kg; 32.00 BMI Method: General Appearance: WD/WN, no apparent distress HEENT: PERRL/EOMI, normal ENT inspection, TMs normal, pharynx normal Neck: non-tender, full range of motion, supple Cardiovascular: regular rate, rhythm; No no gallop; no murmur; No gallop/S3 Respiratory: lungs clear, normal breath sounds, no respiratory distress Gastrointestinal: normal bowel sounds, non tender, soft Hips: bilateral hip non-tender, bilateral hip normal inspection, bilateral hip normal range of motion Legs: bilateral leg non-tender, bilateral leg normal inspection, bilateral leg normal range of motion, bilateral leg swelling Knees: bilateral knee non-tender, bilateral knee normal inspection, bilateral knee normal range of motion, bilateral knee no evidence of injury Ankles: bilateral ankle swelling (bilateral calves ) Feet: bilateral foot swelling (1+ pitting edema ) Neurologic/Psychiatric: no motor/sensory deficits, alert, normal mood/affect, oriented x 3 Skin: normal color, warm/dry Progress/Results/Core Measures Results/Orders Lab Results Laboratory Tests Test 07/28/20 15:05 Range/Units White Blood Count 9.2 4.3-11.0 10^3/uL Red Blood Count 4.64 3.80-5.11 10^6/uL Hemoglobin 13.6 11.5-16.0 g/dL Hematocrit 41 35-52 % Mean Corpuscular Volume 89 80-99 fL Mean Corpuscular Hemoglobin 29 25-34 pg Mean Corpuscular Hemoglobin Concent 33 32-36 g/dL Red Cell Distribution Width 12.5 10.0-14.5 % Platelet Count 303 130-400 10^3/uL Mean Platelet Volume 10.1 9.0-12.2 fL Immature Granulocyte % (Auto) 1 % Neutrophils (%) (Auto) 63 42-75 % Lymphocytes (%) (Auto) 26 12-44 % Monocytes (%) (Auto) 9 0-12 % Eosinophils (%) (Auto) 1 0-10 % Basophils (%) (Auto) 0 0-10 % Neutrophils # (Auto) 5.8 1.8-7.8 10^3/uL Lymphocytes # (Auto) 2.4 1.0-4.0 10^3/uL Monocytes # (Auto) 0.8 0.0-1.0 10^3/uL Eosinophils # (Auto) 0.1 0.0-0.3 10^3/uL Basophils # (Auto) 0.0 0.0-0.1 10^3/uL Immature Granulocyte # (Auto) 0.1 0.0-0.1 10^3/uL Erythrocyte Sedimentation Rate 8 0-20 MM/HR D-Dimer 0.28 0.00-0.49 UG/ML Sodium Level 141 135-145 MMOL/L Potassium Level 3.8 3.6-5.0 MMOL/L Chloride Level 105 98-107 MMOL/L Carbon Dioxide Level 32 21-32 MMOL/L Anion Gap 4 L 5-14 MMOL/L Blood Urea Nitrogen 9 7-18 MG/DL Creatinine 0.75 0.60-1.30 MG/DL Estimat Glomerular Filtration Rate > 60 BUN/Creatinine Ratio 12 Glucose Level 90 70-105 MG/DL Calcium Level 9.6 8.5-10.1 MG/DL Corrected Calcium 8.5-10.1 MG/DL Total Bilirubin 0.3 0.1-1.0 MG/DL Aspartate Amino Transf (AST/SGOT) 32 5-34 U/L Alanine Aminotransferase (ALT/SGPT) 55 0-55 U/L Alkaline Phosphatase 74 40-136 U/L C-Reactive Protein High Sensitivity 0.52 H 0.00-0.50 MG/DL Total Protein 8.7 H 6.4-8.2 GM/DL Albumin 4.6 H 3.2-4.5 GM/DL Thyroid Stimulating Hormone (TSH) 1.08 0.35-4.94 UIU/ML Serum Test, Qualitative NEGATIVE NEGATIVE My Orders Orders - WINSTON BLEDSOE [employer] Us Venous Lower Ext Elinor (07/28/20 14:31) Cbc With Automated Diff (07/28/20 14:32) Comprehensive Metabolic Panel (07/28/20 14:32) Hs C Reactive Protein (07/28/20 14:32) Erythrocyte Sedimentation Rate (07/28/20 14:32) Fibrin Degradation Products (07/28/20 14:32) Hcg,Qualitative Serum (07/28/20 15:17) Thyroid Stimulating Hormone (07/28/20 15:17) Vital Signs/I&O 07/28/20 07/28/20 13:50 17:29 Temp 37.0 Pulse 100 98 Resp 18 18 B/P (MAP) 136/86 (103) 108/73 Pulse Ox 97 97 O2 Delivery Room Air Room Air Blood Pressure Mean: 103 Progress Progress Note : Progress Note States that she is currently being worked up by her primary care provider for genetic clotting disorders and for her leg swelling. States her PCP has recommended referring her to cardiology services. Ultrasound ordered to rule out DVT. However, this is unlikely as she is currently taking Eliquis. Basic labs, d-dimer and TSH ordered to evaluate other causes that could contribute to her leg swelling. Labs reviewed and unremarkable. Reviewed plan of care with her and she is agreeable with plan. Diagnostic Imaging Diagonstic Imaging: Ultrasound Plain Films/CT/US/NM/MRI: leg Comments NAME: BRIAN GUILLERMO [facility] REC#: [id number] PT STATUS: REG ER : 1990 PHYSICIAN: WINSTON BLEDSOE [employer] ADMIT DATE: 07/28/20/ER Signed Date of Exam:07/28/20 US VENOUS LOWER EXT ELINOR PROCEDURE: US Venous Lower Ext Elinor. TECHNIQUE: Multiple real-time grayscale images were obtained over the lower extremities in various projections, bilaterally. Additional duplex Doppler and color Doppler images were also obtained. INDICATION: Bilateral lower extremity swelling EXAMINATION: Grayscale and color Doppler evaluation of the deep veins of the left lower extremity were performed with waveform analysis. FINDINGS: Continuous venous flow is present. No intraluminal filling defect is identified. There is normal compressibility and response to augmentation. No abnormal perivascular fluid collection is identified. IMPRESSION: No ultrasound evidence of left lower extremity deep venous thrombosis. Dictated by: Dictated on workstation # [id number] Dict: 07/28/20 1523 Trans: 07/28/20 1523 [id number] Interpreted by: MARY ANN FAIRBANKS MD Electronically signed by: MARY ANN FAIRBANKS MD 07/28/20 1523 Departure Impression Primary Impression: Leg swelling Disposition: 01 HOME, SELF-CARE Condition: Stable/Unchanged Departure-Patient Inst. Decision time for Depature: 17:05 Referrals: [facility] (PCP) Primary Care Physician EDWIN IVERSON (Family) Primary Care Physician Patient Instructions: Dependent Edema (DC) Add. Discharge Instructions: Plan: 1. Discharge home. 2. Keep legs elevated above your heart as much as possible. Use NAILA hose daily. 3. Follow up with your primary care provider next week. 4. Return for any new or concerning symptoms. All discharge instructions reviewed with patient and/or family. Voiced understanding. WINSTON BLEDSOE [employer]IGHT [employer]LLOWER Jul 28, 2020 17:06
[2020-07-28 17:29] VITALS: BP 108/73
== END 2020-07-28 17:33 | disposition home or self-care (01) ==
LOC: EDUNIT# 11:58 → ER 12:01
DX: M79.89 Other specified soft tissue disorders (principal); F41.9 Anxiety disorder, unspecified; Z86.711 Personal history of pulmonary embolism; Z79.01 Long term (current) use of anticoagulants
CPT/HCPCS: 36415; 80053; 84443; 84703; 85025; 85379; 85652; 86141; 93970

== ENCOUNTER 2020-09-17 06:37 | Outpatient (RCR) | payer OTHER ==
[~2020-09-17] VITALS: Ht 157.5 cm; Wt 84.5 kg
[2020-09-17] MEDS ORDERED: QUET300T19 PO (12:18)
[2020-09-17] MEDS ORDERED: DOXY100T2 PO (12:18)
== END 2020-09-17 12:23 | disposition home or self-care (01) ==
LOC: PREOP 06:37
PROVIDERS: ATTEND Otolaryngology Otolaryngology/Facial Plastic Surgery
DX: Z01.818 Encounter for other preprocedural examination (principal); J34.2 Deviated nasal septum; R09.81 Nasal congestion

== ENCOUNTER 2020-09-25 06:05 | Day surgery (SDC) | payer OTHER ==
[~2020-09-25] VITALS: Ht 157.5 cm; Wt 84.5 kg
[2020-09-25] VITALS (9 sets, daily range): BP systolic 104–132; BP diastolic 62–87
[~2020-09-25 06:05] MED LIST changes: +DOXY100T2 PO; +QUET300T19 PO
[2020-09-25] MEDS ORDERED: proPOfol 200 MG/20 ML (DIPRIVAN) VIAL IV ONE (06:35)
[2020-09-25] MEDS ORDERED: fentaNYL INJECTION 100 MCG/2 ML AMP ONE (06:35)
[2020-09-25] MEDS ORDERED: MIDAZOLAM 2 MG/2 ML (VERSED) VIAL ONE (06:35)
[2020-09-25] MEDS ORDERED: ROCURONIUM 10 MG/ML 5 ML SYRINGE IV ONE (06:35)
[2020-09-25] MEDS ORDERED: LIDOCAINE PF 2% 5 ML (XYLOCAINE) VIAL ONE (06:35)
[2020-09-25] MEDS ORDERED: SUCCINYLCHOLINE INJ 100 MG/5 ML SYR/VIAL ONE (06:35)
[2020-09-25] MEDS ORDERED: ONDANSETRON 4 MG/2 ML (SDV) Z0FRAN ONE (06:35)
[2020-09-25] MEDS ORDERED: SEVOFLURANE (ULTANE) 15 ML INHAL SOLN ONE (06:36)
[2020-09-25] MEDS: LACTATED RINGERS 1,000 ML IV PRN ×2 (06:48→07:39)
[2020-09-25] MEDS ORDERED: COCAINE HCL 4% 2 ML SYR ONE (07:06)
[2020-09-25] MEDS ORDERED: BSS 15 ML ONE (07:06)
[2020-09-25] MEDS ORDERED: PHENYLEPHRINE 0.5% NASAL SPR (NEO-SYNEPHRINE) REG ONE (07:06)
[2020-09-25] MEDS ORDERED: LIDOCAINE/EPI 1%-1:200,000 (XYLOCAINE) 10 ML VIAL ONE (07:06)
--- NOTE | 2020-09-25 07:11 | Progress Note-Pre Operative ---
Pre-Operative Progress Note H&P Reviewed The H&P was reviewed, patient examined and no changes noted. Date Seen by Provider: Sep 25, 2020 Time Seen by Provider: 06:45 Date H&P Reviewed: Sep 25, 2020 Time H&P Reviewed: 06:45 Pre-Operative Diagnosis: Nasospetal perforation DONALD WING MD Sep 25, 2020 07:11
--- NOTE | 2020-09-25 07:54 | Progress Note-Post Operative ---
Post-Operative Progess Note Surgeon (s)/Volleyball Commentator (s) Surgeon DONALD WING MD Volleyball Commentator n/a Pre-Operative Diagnosis Nasospetal perforation Post-Operative Diagnosis same Post-Op Procedure Note Date of Procedure: Sep 25, 2020 Name of Procedure Performed: Insertion of Nasoseptal button Description & Findings Description and Findings: n/a Anesthesia Type lma Estimated Blood Loss minimal Packing none. Specimen(s) collected/removed none DONALD WING MD Sep 25, 2020 07:54
[2020-09-25] MEDS ORDERED: D5 1/2 NS W/KCL 20 MEQ/L 1,000 ML IV SCH (08:00)
[2020-09-25] MEDS ORDERED: HYDROcodone/APAP 5 MG/325 MG (LORTAB) TAB PO PRN (08:00)
[2020-09-25] MEDS ORDERED: ACETAMINOPHEN 325 MG TABLET PO PRN (08:00)
[2020-09-25] MEDS ORDERED: PROMETHAZINE INJ 25 MG/ML (PHENERGAN) AMP IVP PRN (08:00)
[2020-09-25] MEDS ORDERED: ONDANSETRON 4 MG/2 ML (SDV) Z0FRAN IVP PRN (08:00)
[2020-09-25] MEDS ORDERED: HYDROmorphone 2 MG/ML VIAL (DILAUDID) IV ONE (08:00)
--- NOTE | 2020-09-25 09:37 | Anesthesia-General Post-Op ---
General Patient Condition Mental Status/LOC: Same as Preop Cardiovascular: Satisfactory Nausea/Vomiting: Absent Respiratory: Satisfactory Pain: Controlled Complications: Absent Post Op Complications Complications None Follow Up Care/Instructions Patient Instructions None needed. Anesthesia/Patient Condition Patient Condition Patient is doing well, no complaints, stable vital signs, no apparent adverse anesthesia problems. No complications reported per nursing. [place] [facility] [place] Yes ROLO STEINER CRNA Sep 25, 2020 09:37
== END 2020-09-25 09:45 | disposition home or self-care (01) ==
LOC: SDC 06:05
PROVIDERS: ATTEND Otolaryngology Otolaryngology/Facial Plastic Surgery
DX: J34.89 Other specified disorders of nose and nasal sinuses (principal); F41.9 Anxiety disorder, unspecified; F32.9 Major depressive disorder, single episode, unspecified; Z79.82 Long term (current) use of aspirin; Z79.2 Long term (current) use of antibiotics; Z79.899 Other long term (current) drug therapy; Z86.16 Personal history of COVID-19; Z86.711 Personal history of pulmonary embolism; Z86.718 Personal history of other venous thrombosis and embolism
CPT/HCPCS: 84703; 87081